=== PATIENT | female | born 1950 | race African-American/Black ===

== ENCOUNTER 2019-09-15 15:27 | Inpatient (IN) | payer MEDICARE, OTHER ==
[~2019-09-15] VITALS: Ht 160 cm; Wt 84.3 kg
[2019-09-15 16:29] LABS: Basophils # (auto) 0 10 ^3/uL (0-0.2); Basophils % (auto) 0.3 % (0.0-2.0); Eosinophils # (auto) 0 10 ^3/uL (0-0.8); Eosinophils % (auto) 0.2 % (0.0-7.0); Hematocrit 33.2 % (36.0-46.0); Hemoglobin 11.2 g/dL (12.2-16.2); Lymphocytes # (auto) 0.9 10 ^3/uL (0.4-5.4); Lymphocytes % (auto) 12.1 % (10.0-50.0); Mean Corpuscular Hemoglobin 30.9 pg (28.0-32.0); Mean Corpuscular Hgb Conc. 33.6 g/dL (32.0-36.0); Monocytes # (auto) 0.6 10 ^3/uL (0-1.3); Monocytes % (auto) 7.5 % (0.0-12.0); Neutrophils % (auto) 79.9 % (37.0-80.0); Platelet Count (auto) 222 10^3/uL (140-450); Red Cell Distribution Width 12.7 % (11.8-14.3); White Blood Cell 7.5 10^3/uL (4.4-10.8)
[2019-09-15 16:45] LABS: Alanine Aminotransferase 57 U/L (13-56); Albumin 3.2 g/dL (3.4-5.0); Anion Gap 5 (5-15); Aspartate Aminotransferase 34 U/L (15-37); BUN/Creatinine Ratio 16.1; Blood Urea Nitrogen 14 mg/dL (7-18); Calcium 8.6 mg/dL (8.5-10.1); Carbon Dioxide 25 mmol/L (21-32); Chloride 109 mmol/L (98-107); GFR African American 84 mL/min; GFR Non-African American 69 mL/min; Glucose 104 mg/dL (74-106); Potassium 3.6 mmol/L (3.5-5.1); Sodium 139 mmol/L (136-145)
[2019-09-15 16:50] LABS: Alkaline Phosphatase 72 U/L (45-117); Bilirubin, Total 0.5 mg/dL (0.2-1.0); Total Protein 7.5 g/dL (6.4-8.2)
[2019-09-15] MEDS ORDERED: AZITHROMYCIN 500MG/ 250ML 250 ML IV ONE (17:00)
[2019-09-15] MEDS ORDERED: cefTRIAXone 1GM/50ML D5W 50 ML IV ONE (17:00)
[2019-09-15] MEDS ORDERED: ACETAMINOPHEN 500 MG TAB PO ONE (18:00)
[2019-09-15 18:35] LABS: CRP High Sensitivity 3.11 mg/dL (< 0.3)
[2019-09-15 18:37] LABS: INR 1.03 (0.9-1.15); Partial Thromboplastin Time 27.9 sec (23.64-32.05)
[2019-09-15] MEDS ORDERED: NITROGLYCERIN 0.4 MG SL TAB SL PRN (19:15)
[2019-09-15] MEDS ORDERED: ALUM & MAG HYDROX-SIMETH LIQ(MAALOX) 30 ML PO PRN (19:15)
[2019-09-15] MEDS ORDERED: FUROSEMIDE 20 MG/2 ML VIAL IV ONE (19:15)
[2019-09-15] MEDS ORDERED: METOCLOPRAMIDE HCL 5MG/ml INJ 2ml VIAL IV PRN (19:15)
[2019-09-15] MEDS ORDERED: TEMAZEPAM 15 MG CAP PO PRN (19:15)
[2019-09-15] MEDS ORDERED: ENOXAPARIN SOD 100 MG/1 ML SYRINGE SC ONE (19:15)
[2019-09-15] MEDS ORDERED: MORPHINE SULF INJ 2 MG/ML SYRINGE 1ML IV PRN ×2 (19:15)
[2019-09-15] MEDS ORDERED: HYDROcodone-ACET 5/325MG TAB PO PRN (19:15)
[2019-09-15] MEDS ORDERED: DOCUSATE SOD 100 MG CAP PO PRN (19:15)
[2019-09-15] MEDS ORDERED: ENOXAPARIN SOD 80 MG/0.8ML SYRINGE SC ONE (19:30)
[2019-09-15 20:01] LABS: Urine Bacteria NONE SEEN /hpf (None Seen); Urine Blood TRACE /uL (Negative); Urine Mucus FEW (None Seen); Urine Specific Gravity 1.025 (1.001-1.035); Urine WBC 36 /hpf (0 - 5)
[2019-09-15 22:00] VITALS: BP 128/57
[2019-09-15 22:20] VITALS: BP 128/57
--- NOTE | 2019-09-15 22:20 | NUR ---
Telemetry admit from ER to [facility] Unit JUANA DONOVAN admitted to Telemetry unit. Patient oriented to DAMARIS ABRAHAM, primary RN, unit, room, bed, and unit policies regarding patient care and visiting hours. Patient now on continuous telemetry monitoring, tele box #9 and telemetry reading on arrival to unit is sinus rhythm. Patient is alert and oriented x4. Patient denies shortness of breath or pain at this time. No sign/symptoms of distress noted or verbalized at this time. Instructed on plan of care and to call for assistance as needed, patient verbalized understanding. Bed is locked in lowest position, side rails x 2 are up, and call light is within reach.
[2019-09-15] MEDS ORDERED: BUDESONIDE (INHALATION) 0.5 MG/2 ML NEB NEB ONE (22:45)
[2019-09-15] MEDS: ALBUTEROL SULF HFA 90MCG INH 200DOSE IN SCH (22:46)
[2019-09-15] MEDS: SODIUM CHLOR 0.9% PF (SALINE LOCK) 10ML VIAL/SYR IV SCH (23:28)
[2019-09-15] MEDS ORDERED: CHOL20007 PO (23:31)
[2019-09-16 02:24] VITALS: BP 128/57
[2019-09-16] MEDS: ACETAMINOPHEN 325 MG TAB PO PRN ×3 (03:29→22:37)
--- NOTE | 2019-09-16 03:29 | NUR ---
Temperature Temperature is 100.5. Patient refusing cooling measures at this time. Educated on the risk and benefits, patient verbalized understanding. Patient medicated for temperature see eMAR. Addendum: 09/16/19 at 0338 by DAMARIS ABRAHAM RN RN Patient complaining of chills at this time.
[2019-09-16 05:03] VITALS: BP 107/49
[2019-09-16] MEDS: SODIUM CHLOR 0.9% PF (SALINE LOCK) 10ML VIAL/SYR IV SCH ×3 (06:36→21:36)
--- NOTE | 2019-09-16 06:54 | NUR ---
EKG EKG done and placed in hardchart as ordered by .
[2019-09-16] MEDS: ALBUTEROL SULF HFA 90MCG INH 200DOSE IN SCH ×3 (06:57→22:04)
[2019-09-16] MEDS: BUDESONIDE (INHALATION) 180 MCG IH IN SCH ×2 (06:58→22:04)
[2019-09-16] MEDS ORDERED: IOHEXOL 350 MG/ML 100ML IJ ONE (08:05)
[2019-09-16 08:59] VITALS: BP 117/56
[2019-09-16] MEDS ORDERED: BUDESONIDE (INHALATION) 0.5 MG/2 ML NEB NEB SCH (10:00)
[2019-09-16 10:46] LABS: Basophils # (auto) 0 10 ^3/uL (0-0.2); Basophils % (auto) 0.2 % (0.0-2.0); Eosinophils # (auto) 0 10 ^3/uL (0-0.8); Eosinophils % (auto) 0.5 % (0.0-7.0); Hematocrit 33.2 % (36.0-46.0); Lymphocytes % (auto) 13.3 % (10.0-50.0); Mean Corpuscular Hemoglobin 30.4 pg (28.0-32.0); Mean Corpuscular Volume 92.3 fL (80.0-100.0); Monocytes # (auto) 0.6 10 ^3/uL (0-1.3); Monocytes % (auto) 8.4 % (0.0-12.0); Neutrophils # (auto) 5.7 10 ^3/uL (1.6-8.6); Neutrophils % (auto) 77.6 % (37.0-80.0); Nucleated Red Blood Cells % 0.2 %; Platelet Count (auto) 227 10^3/uL (140-450); Red Cell Distribution Width 12.6 % (11.8-14.3); White Blood Cell 7.3 10^3/uL (4.4-10.8)
[2019-09-16] MEDS: ENOXAPARIN SOD 80 MG/0.8ML SYRINGE SC SCH ×2 (10:57→21:36)
[2019-09-16 11:06] LABS: Magnesium 2.3 mg/dL (1.6-2.6); Potassium 3.7 mmol/L (3.5-5.1)
[2019-09-16 11:16] LABS: Albumin 3.2 g/dL (3.4-5.0); BUN/Creatinine Ratio 16.3; Bilirubin, Total 0.6 mg/dL (0.2-1.0); CRP High Sensitivity 4.91 mg/dL (< 0.3); Total Protein 7.4 g/dL (6.4-8.2)
[2019-09-16 12:13] VITALS: BP 127/55
--- NOTE | 2019-09-16 12:15 | NUR ---
ROUNDING. POC DISCUSSED WITH MYSELF AND THE PATIENT AND PATIENT VERBALIZED UNDERSTANDING OF POC. NEW ORDERS RECEIVED.
[2019-09-16] MEDS ORDERED: hydrOXYchloroQUINE SULFATE 200 MG TAB PO ONE (13:45)
[2019-09-16 16:51] VITALS: BP 131/59
--- NOTE | 2019-09-16 20:00 | NUR ---
Opening Shift Note Assumed care of patient, awake and alert x4. Patient denies pain or shortness of breath at this time. No sign/symptoms of distress noted or verbalized at this time. Instructed on plan of care and encouraged patient to call for assistance as needed, patient verbalized understanding. Bed is locked in lowest position, side rails x2 are up, and call light is within reach.
--- NOTE | 2019-09-16 21:36 | NUR ---
Temperature Patient's temperature is 101.3. Cooling measures initiated and in place. Patient medicated for elevated temperature as ordered by MD (see eMAR).
[2019-09-16 22:00] VITALS: BP 117/55
--- NOTE | 2019-09-16 22:40 | NUR ---
Temperature Reassessment Patient's temperature is 99.3. Cooling measures are still in place. Patient denies chills at this time. Will continue care.
[2019-09-17 05:00] VITALS: BP 124/59
[2019-09-17] MEDS: SODIUM CHLOR 0.9% PF (SALINE LOCK) 10ML VIAL/SYR IV SCH (06:17)
[2019-09-17] MEDS: ALBUTEROL SULF HFA 90MCG INH 200DOSE IN SCH ×2 (06:17→14:13)
[2019-09-17] MEDS: BUDESONIDE (INHALATION) 180 MCG IH IN SCH (06:17)
[2019-09-17 09:36] VITALS: BP 120/51
[2019-09-17] MEDS: ENOXAPARIN SOD 80 MG/0.8ML SYRINGE SC SCH (09:52)
[2019-09-17] MEDS ORDERED: hydrOXYchloroQUINE SULFATE 200 MG TAB PO SCH (10:00)
--- NOTE | 2019-09-17 12:10 | NUR ---
Respiratory note: ABG NOT DONE. SPO2 AFTER AMBULATING WAS 100% ON ROOM AIR. RN AWARE
--- NOTE | 2019-09-17 12:11 | NUR ---
PATIENT AMBULATED ON ROOM AIR COUGHED EXCESSIVELY OXYGEN SATURATION 99% ON ROOM AIR AFTER AMBULATION. WILL NOTIFY DR PROCTOR.
[2019-09-17 13:12] VITALS: BP 137/54
[2019-09-17 15:56] VITALS: BP 115/48
--- NOTE | 2019-09-17 17:45 | NUR ---
Discharge instructions given as ordered. Encourage to follow up with PMD as instructed. All questions and concerns addressed. Patient verbalized understanding. Medication reconciliation form completed and copy given to patient. IV removed with catheter intact, pressure dressing applied, . Telemetry unit returned to ICU. Patient taken to vehicle via wheelchair with all personal belongings, accompanied by staff and family member. No distress noted at time of departure.
== END 2019-09-17 17:00 | disposition home or self-care (01) | DRG 177 ==
LOC: ER 15:27 → TELE 15:28 → TELE-EAST 22:18
PROVIDERS: ADMIT Internal Medicine; ATTEND Internal Medicine
DX: U07.1 COVID-19 (principal); J12.89 Other viral pneumonia; E44.1 Mild protein-calorie malnutrition; Z96.651 Presence of right artificial knee joint; E66.9 Obesity, unspecified; Z68.33 Body mass index [BMI] 33.0-33.9, adult
CPT/HCPCS: 36415; 71045; 71275; 80053; 81001; 82728; 83615; 83735; 83880; 84484; 85025; 85379; 85610; 85652; 85730; 86141; 87070; 87081; 87804; 87880; 93970; 94640; 96365; 96368; 97110; 97163; G0378; J0696

== ENCOUNTER → 2020-01-18 | Outpatient (CLI) | payer MEDICARE, OTHER ==
[~2020-01-18] MED LIST: CHOL20007 PO
== END | disposition home or self-care (01) ==
LOC: Rad HDHVI 10:54
PROVIDERS: ATTEND Internal Medicine Cardiovascular Disease
DX: I08.0 Rheumatic disorders of both mitral and aortic valves (principal); R00.2 Palpitations; R01.1 Cardiac murmur, unspecified
CPT/HCPCS: 93306

== ENCOUNTER → 2020-01-25 | Outpatient (CLI) | payer MEDICARE, OTHER ==
[~2020-01-25] VITALS: Ht 160 cm; Wt 85.3 kg
== END | disposition home or self-care (01) ==
LOC: Rad HDHVI 13:20
PROVIDERS: ATTEND Internal Medicine Cardiovascular Disease
DX: R06.02 Shortness of breath (principal); R07.9 Chest pain, unspecified
CPT/HCPCS: 78452; 93017; 96374; A9500